=== PATIENT | female | born 2005 ===

== ENCOUNTER 2025-03-21 20:30 | Emergency (ER) | payer MEDICAID ==
[~2025-03-21] VITALS: Ht 154.9 cm; Wt 60.8 kg
[2025-03-21 20:35] VITALS: RESP 18
== END 2025-03-21 21:30 | disposition left against medical advice (07) ==
LOC: ER 20:31
DX: O26.892 Other specified pregnancy related conditions, second trimester (principal); Z3A.28 28 weeks gestation of pregnancy; Z53.21 Procedure and treatment not carried out due to patient leaving prior to being seen by health care provider